=== PATIENT | female | born 2000 | race Hispanic/Latino ===

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

== ENCOUNTER 2025-04-02 09:15 | Emergency (ER) | payer OTHER, BC ==
[~2025-04-02] VITALS: Ht 160 cm; Wt 85.3 kg
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
[2025-04-02 13:25] VITALS: BP 128/65; PULSE 76; RESP 16; TEMP 98.3; O2SAT 99
== END 2025-04-02 13:26 | disposition home or self-care (01) ==
LOC: EDH 09:15
DX: M54.50 Low back pain, unspecified (principal); Z88.0 Allergy status to penicillin; V89.2XXA Person injured in unspecified motor-vehicle accident, traffic, initial encounter; Y93.89 Activity, other specified; Y92.89 Other specified places as the place of occurrence of the external cause; Y99.8 Other external cause status
CPT/HCPCS: 71045; 73030; 81025; 99284